=== PATIENT | female | born 1955 | race African-American/Black ===

== ENCOUNTER 2018-02-18 12:07 | Emergency (ER) | payer BC ==
[~2018-02-18] VITALS: Ht 167.6 cm; Wt 130.0 kg
[2018-02-18 12:08] VITALS: BP 152/96
[2018-02-18] MEDS ORDERED: PHEN15TA18 PO (12:11)
[2018-02-18] MEDS ORDERED: IBUPROFEN 600MG TABLET PO ONE (16:00)
== END 2018-02-18 23:34 | disposition left against medical advice (07) ==
LOC: ER 12:34
DX: F41.9 Anxiety disorder, unspecified (principal)
CPT/HCPCS: 99283